=== PATIENT | male | born 1990 | race Two or more races ===

== ENCOUNTER 2018-01-14 12:52 | Emergency (ER) | payer MEDICAID, OTHER ==
--- NOTE | 2018-01-14 13:03 | EDPHY ---
H & P Time Seen by Provider: 01/14/18 13:02 Medical Decision Making ED Course/Re-evaluation: CHIEF COMPLAINT: HISTORY OF PRESENT ILLNESS: must have 4 elements: Location, Quality, Severity , Duration, Timing, Context, Modifying Factors, Associated Signs and Symptoms REVIEW OF SYSTEMS: A 10 point review of systems was performed and is negative with the exception of the elements mentioned in the history of present illness. PHYSICAL EXAM: HR, BP, O2 Sat, RR. Temp noted General Appearance: Alert, well hydrated, appropriate, and non-toxic appearing. Head: Atraumatic without scalp tenderness or obvious injury Eyes: Pupils equal, round, reactive to light and accommodation, EOMI, no trauma , no injection. Ears: Clear bilaterally, no perforation, normal landmarks Nose: Atraumatic, no rhinorrhea, clear. Throat: There is no erythema or exudates, no lesions, normal tonsils, mucus membranes moist. Neck: Supple, 2+ carotid upstroke, nontender, no lymphadenopathy. Respiratory: No retractions, no distress, no wheezes, and no accessory muscle use. Lungs are clear to auscultation bilaterally. Cardiovascular: Regular rate and rhythm, no murmurs, rubs, or gallops. Bilateral carotid, radial, dorsalis pedis, and posterior tibial pulses intact. Good capillary refill all extremities. Gastrointestinal: Abdomen is soft, nontender, non-distended, no masses, no rebound, no guarding, no peritoneal signs. Musculoskeletal: Normal active ROM of all extremities, atraumatic. Neurological: Alert, appropriate, and interactive. The patient has normal DTRs and non-focal cranial nerves, motor, sensory, and cerebellar exam. Skin: No rashes, good turgor, no nodules on palpation. Past medical history: Past surgical history: Family history: Social history: DIAGNOSTICS/PROCEDURES/CRITICAL CARE TIME: DIFFERENTIAL DIAGNOSIS: MEDICAL DECISION MAKING: Departure - Departure Referrals: NONE *PRIMARY CARE P,. [Primary Care Provider] - As per Instructions
[2018-01-14 13:56] LABS: PLATELET COUNT 254 10^3/uL (150-400)
--- NOTE | 2018-01-14 13:57 | EDPHY ---
H & P Smoking Status: Current every day smoker Time Seen by Provider: 01/14/18 13:02 HPI/ROS: CHIEF COMPLAINT: Paranoid, delusional HISTORY OF PRESENT ILLNESS: 27-year-old male presents to the emergency department with paranoid and delusional thoughts. The patient is on an M1 hold from [facility] where he was just sent and was sent to the emergency department for medical clearance and mental health evaluation. He has been telling his that someone is following him with guns and wants to kill him. He apparently used to be involved in a getting and was released from custodial. He admits to smoking 1 he thought was marijuana 3 days ago with his brother. He denies any other substance abuse. He denies suicidal or homicidal ideation. Denies trauma. Denies chest pain or difficulty breathing. Denies abdominal pain. Denies paresthesias in his upper or lower extremities. REVIEW OF SYSTEMS: Constitutional: No fever, no chills. Eyes: No double or blurry vision. ENT: No sore throat. Respiratory: No cough, no shortness of breath. Cardiac: No chest pain. Gastrointestinal: No abdominal pain, vomiting or diarrhea. Genitourinary: No dysuria. Musculoskeletal: No neck or back pain. Skin: No rashes. Neurological: No headache. (Latonya Beal) Past Medical/Surgical History: Marijuana use (Latonya Beal) Social History: (Latonya Beal) Physical Exam: General Appearance: Alert, no distress. Eyes: Pupils equal and round. Extraocular motions are all intact. ENT: Mouth: Mucous membranes moist. Respiratory: No wheezing, rhonchi, or rales, lungs are clear to auscultation. Cardiovascular: Regular rate and rhythm. Gastrointestinal: Abdomen is soft and nontender, no masses, no rebound or guarding, bowel sounds normal. Neurological: Alert and oriented x 3, cranial nerves II through XII grossly intact Skin: Warm and dry, no rashes. Musculoskeletal: Nontender to palpate along the cervical, thoracic or lumbar spine. Neck is supple. Extremities: Full range of motion and no peripheral edema. Psychiatric: Patient is oriented X 3, there is no agitation. (Elodia Beala M) Constitutional: Initial Vital Signs Temperature (C) 36.8 C 06/28/18 13:12 Heart Rate 96 01/14/18 13:12 Respiratory Rate 18 01/14/18 13:12 Blood Pressure 108/85 H 01/14/18 13:12 O2 Sat (%) 96 01/14/18 13:12 O2 Delivery Mode Room Air Allergies/Adverse Reactions: No Known Allergies Allergy (Unverified 01/14/18 13:16) Home Medications: Medication Instructions Recorded NK [No Known Home Meds] 01/14/18 Medical Decision Making ED Course/Re-evaluation: 27-year-old male presents to the emergency department acting paranoid and delusional. The patient states that he was at [facility] on Thursday , 3 days ago and tested positive for methamphetamines. Patient states that he thought that when he smoked with his brother was marijuana but really with methamphetamines. He is acting paranoid and delusional. His does not feel that he is safe at home. He was seen at [facility] and placed on an M1 hold and was sent to the emergency department for medical clearance and mental health evaluation. Urine tox was positive for amphetamines and marijuana. (Latonya Beal) Differential Diagnosis: Depression including functional and major depression, situational depression, medication side effect, drugs and alcohol abuse. (Latonya Beal) Other Provider: PHYSICIAN DOCUMENTATION: The patient was evaluated and managed by the Physician Iv Rn and myself. I have reviewed the chart and agree with the findings and plan of care as documented. In addition, I examined the patient myself at 1820. History confirmed as methamphetamine, feels like people are chasing him with guns. Physical findings as follows: Alert and cooperative at this time. Denies suicidal or homicidal ideation. Informed that he will be eligible for mental health evaluation after 12 hr since he is positive for amphetamines. Signed to [place] at 2130 with psych evaluation pending. I am the secondary supervising physician. (Aayush Barron) The patient is psychotic in the setting of methamphetamine use this evening. I re-evaluated the patient at 11:00 pm. He is no longer psychotic but is still quite paranoid. He is requesting to be evaluated by [facility]. The patient will be turned over to Dr. Atwood at shift change (Lane River) 2300 care assumed by me from Dr. River pending mental health evaluation. 0700 patient signed out to Dr. Ennis pending mental health evaluation. I had no issues during my care this patient overnight (Yoni Atwood Rubio) 11:20 a.m. the patient has been evaluated by Mental [facility]. He is no longer intoxicated and is no longer suicidal. His is on her way to pick him up. They plan to discharge him. (Luis Ennis) - Data Points Laboratory Results: Laboratory Results 01/14/18 13:00 01/14/18 13:00 Departure - Departure Disposition: Home, Routine, Self-Care Clinical Impression: Paranoia, Substance abuse Condition: Fair Instructions: Methamphetamine Abuse (ED) Referrals: NONE *PRIMARY CARE P,. [Primary Care Provider] - As per Instructions Gabriel Helm MD [[facility] [place] - As per Instructions
[2018-01-15 11:39] VITALS: BP 110/73
== END 2018-01-15 11:59 | disposition home or self-care (01) ==
LOC: EEVIPCON 12:52
DX: F22 Delusional disorders (principal); F12.10 Cannabis abuse, uncomplicated; F17.200 Nicotine dependence, unspecified, uncomplicated
CPT/HCPCS: 80305; G0480